=== PATIENT | female | born 1960 | race African-American/Black ===

== ENCOUNTER 2022-05-07 14:41 | Inpatient (IN) | payer MEDICAID, OTHER ==
[~2022-05-07] VITALS: Ht 160 cm; Wt 104.3 kg
[2022-05-07] MEDS ORDERED: METOCLOPRAMIDE HCL 10MG/2ML VIAL IV ONE (17:45)
[2022-05-07 18:42] LABS: BASOPHILS % 0.9 % (0.0-2.0); HEMATOCRIT. 38.4 % (36.0-48.0); HEMOGLOBIN. 13.1 g/dL (12.0-16.0); LYMPHOCYTES % 22.1 % (20.0-50.0); MEAN CORPUSCULAR HEMOGLOBIN 30.3 pg (28.0-32.0); MEAN CORPUSCULAR VOLUME 88.7 fL (81.0-99.0); MEAN PLATELET VOLUME 7.7 fl (7.4-10.4); MONOCYTES % 8.1 % (2.0-8.0); NEUTROPHILS % 67.9 % (40.0-76.0); PLATELET 320 x1000/uL (130-400); RED BLOOD CELL COUNT 4.33 mill/uL (4.2-5.4); RED CELL DISTRIBUTION WIDTH 18.3 % (11.6-14.6)
[2022-05-07] MEDS ORDERED: MECLIZINE 25MG TABLET PO NR (18:45)
[2022-05-07 18:48] LABS: CHLORIDE 100 mEq/L (98-107)
[2022-05-07] MEDS ORDERED: IOHEXOL-350 100 ML BOTTLE ONE (20:10)
[2022-05-08] MEDS ORDERED: ACETAMINOPHEN 325MG TABLET PO PRN (00:30)
[2022-05-08] MEDS ORDERED: DOCUSATE SODIUM 100MG CAPSULE PO PRN (00:30)
[2022-05-08] MEDS ORDERED: MAGNESIUM/ALUMINUM HYDROXIDE/SIMETHICONE 30ML UDC PO PRN (00:30)
[2022-05-08] MEDS ORDERED: IPRATROPIUM/ALBUTEROL 0.5-3(2.5)MG/3ML NEB HHN PRN ×2 (00:30→13:00)
[2022-05-08] MEDS ORDERED: KETOROLAC 15MG/ML VIAL IV ONE (00:30)
[2022-05-08] MEDS ORDERED: GUAIFENESIN 200MG/10ML SUGAR FREE UDC PO PRN (00:30)
[2022-05-08] MEDS ORDERED: MAGNESIUM 2 G PREMIX 50 ML IV NR (00:45)
[2022-05-08] MEDS: KCL 20MEQ/100ML PREMIX 100 ML IV SCH (08:51)
[2022-05-08 09:30] VITALS: BP 114/76
[2022-05-08 10:30] VITALS: BP 132/85
[2022-05-08] MEDS: ASPIRIN 81MG TABLET PO SCH (10:52)
[2022-05-08] MEDS: CLOPIDOGREL 75MG TABLET PO SCH (10:53)
[2022-05-08] MEDS: PANTOPRAZOLE SODIUM 40 MG/VIAL IV SCH (10:53)
[2022-05-08] MEDS: ENOXAPARIN 40MG/0.4ML SYR SUBCUT SCH (10:54)
[2022-05-08 12:00] VITALS: BP 113/73
[2022-05-08 16:00] VITALS: BP 130/89
[2022-05-08] MEDS ORDERED: KCL 20MEQ/100ML PREMIX 100 ML IV SCH (16:00)
[2022-05-08] MEDS: NICOTINE 21MG PATCH TD SCH (18:13)
[2022-05-08 18:24] LABS: CHLORIDE 102 mEq/L (98-107)
[2022-05-08 20:42] VITALS: BP 128/75
[2022-05-08] MEDS: ATORVASTATIN CALCIUM 40MG TABLET PO SCH (20:48)
[2022-05-08] MEDS: ACETAMINOPHEN 325MG TABLET PO PRN (20:48)
[2022-05-08] MEDS ORDERED: ATORVASTATIN CALCIUM 40MG TABLET PO SCH (21:00)
[2022-05-09] VITALS: BP 130/82
[2022-05-09] MEDS: LORAZEPAM 1MG TABLET PO NR ×2 (00:37→14:35)
[2022-05-09 04:24] VITALS: BP 115/75
[2022-05-09 08:00] VITALS: BP_SYST 140; BP_SYST 148; BP_SYST 157; BP_DIAS 88; BP_DIAS 90; BP_DIAS 98
[2022-05-09] MEDS: ENOXAPARIN 40MG/0.4ML SYR SUBCUT SCH (09:13)
[2022-05-09] MEDS: CLOPIDOGREL 75MG TABLET PO SCH (09:14)
[2022-05-09] MEDS: CLONIDINE 0.1MG TABLET PO PRN ×2 (09:14→21:55)
[2022-05-09] MEDS: NICOTINE 21MG PATCH TD SCH (09:14)
[2022-05-09] MEDS: ASPIRIN 81MG TABLET PO SCH (09:14)
[2022-05-09] MEDS: PANTOPRAZOLE SODIUM 40 MG/VIAL IV SCH (09:15)
[2022-05-09 10:39] LABS: BASOPHILS % 0.5 % (0.0-2.0); EOSINOPHILS % 3.5 % (0.0-5.0); HEMATOCRIT. 38.6 % (36.0-48.0); HEMOGLOBIN. 12.7 g/dL (12.0-16.0); LYMPHOCYTES % 29.4 % (20.0-50.0); MEAN CORPUSCULAR HEMOGLOBIN 29.7 pg (28.0-32.0); MEAN CORPUSCULAR VOLUME 90.5 fL (81.0-99.0); MEAN PLATELET VOLUME 7.7 fl (7.4-10.4); MONOCYTES % 11.3 % (2.0-8.0); NEUTROPHILS % 55.3 % (40.0-76.0); PLATELET 291 x1000/uL (130-400); RED BLOOD CELL COUNT 4.27 mill/uL (4.2-5.4); RED CELL DISTRIBUTION WIDTH 17.9 % (11.6-14.6)
[2022-05-09 10:57] LABS: CHLORIDE 103 mEq/L (98-107)
[2022-05-09 12:00] VITALS: BP 144/88
[2022-05-09] MEDS: ACETAMINOPHEN 325MG TABLET PO PRN (13:05)
[2022-05-09 16:00] VITALS: BP 152/85
[2022-05-09] MEDS ORDERED: DEXAMETHASONE 4MG/ML 1ML VIAL IV SCH (18:00)
[2022-05-09 20:00] VITALS: BP_SYST 157; BP_SYST 170; BP_DIAS 82; BP_DIAS 90
[2022-05-09] MEDS ORDERED: TRAZ-252 MT (21:52)
[2022-05-09] MEDS: ENOXAPARIN 30MG/0.3ML SYR SUBCUT SCH (21:54)
[2022-05-09] MEDS: ATORVASTATIN CALCIUM 40MG TABLET PO SCH (21:54)
[2022-05-10] VITALS: BP 179/90
[2022-05-10] MEDS ORDERED: ALBU05 IH (00:19)
[2022-05-10] MEDS ORDERED: [UNRECOGNIZED DRUG - OTHER] PO (01:11)
[2022-05-10] MEDS ORDERED: NIFE90TA60 PO (01:14)
[2022-05-10] MEDS ORDERED: AMLODIPINE 10MG TABLET PO NR (01:30)
[2022-05-10] MEDS ORDERED: RISPERDONE PO (01:34)
[2022-05-10] MEDS: ACETAMINOPHEN 325MG TABLET PO PRN ×2 (01:44→13:46)
[2022-05-10 04:00] VITALS: BP 158/93
[2022-05-10] MEDS ORDERED: MESA1.2T2 MT (05:19)
[2022-05-10] MEDS ORDERED: SIMV-46 PO (05:19)
[2022-05-10] MEDS ORDERED: TRAZ-252 PO (06:47)
[2022-05-10] MEDS ORDERED: VARE1TAB21 PO (06:47)
[2022-05-10] MEDS ORDERED: CLOP75TA33 PO (06:47)
[2022-05-10] MEDS ORDERED: PREG75CA PO (06:47)
[2022-05-10] MEDS ORDERED: CLON0.1T PO (06:47)
[2022-05-10] MEDS ORDERED: FAMO20TA8 PO (06:47)
[2022-05-10] MEDS ORDERED: OMEP40CA20 PO (06:47)
[2022-05-10] MEDS ORDERED: HYDR25TA PO (06:47)
[2022-05-10] MEDS ORDERED: MIRT45TA83 PO (06:47)
[2022-05-10] MEDS ORDERED: BUPR-46 PO (06:47)
[2022-05-10] MEDS ORDERED: N325 SL (06:47)
[2022-05-10] MEDS ORDERED: LURA120T PO (06:47)
[2022-05-10 08:00] VITALS: BP_SYST 128; BP_SYST 134; BP_SYST 143; BP_DIAS 79; BP_DIAS 82; BP_DIAS 86
[2022-05-10] MEDS: PANTOPRAZOLE SODIUM 40 MG/VIAL IV SCH (09:33)
[2022-05-10] MEDS: ASPIRIN 81MG TABLET PO SCH (09:33)
[2022-05-10] MEDS: CLOPIDOGREL 75MG TABLET PO SCH (09:33)
[2022-05-10] MEDS: NICOTINE 21MG PATCH TD SCH (09:34)
[2022-05-10] MEDS: ENOXAPARIN 30MG/0.3ML SYR SUBCUT SCH ×2 (09:34→21:10)
[2022-05-10 12:00] VITALS: BP_SYST 131; BP_SYST 138; BP_SYST 150; BP_DIAS 92; BP_DIAS 93; BP_DIAS 97
[2022-05-10 16:00] VITALS: BP_SYST 111; BP_SYST 140; BP_SYST 169; BP_DIAS 68; BP_DIAS 84; BP_DIAS 93
[2022-05-10 20:00] VITALS: BP_SYST 126; BP_SYST 139; BP_DIAS 100; BP_DIAS 93
[2022-05-10] MEDS: ATORVASTATIN CALCIUM 40MG TABLET PO SCH (21:10)
[2022-05-10] MEDS: FAMOTIDINE 20MG TABLET PO SCH (21:10)
[2022-05-11] VITALS: BP 126/94
[2022-05-11] MEDS: ACETAMINOPHEN 325MG TABLET PO PRN (00:43)
[2022-05-11 04:00] VITALS: BP 127/93
[2022-05-11 08:00] VITALS: BP 139/97
[2022-05-11] MEDS ORDERED: FAMOTIDINE 20MG/2ML VIAL IV SCH (09:00)
[2022-05-11] MEDS ORDERED: ATOR80TA MT (09:15)
[2022-05-11] MEDS: NICOTINE 21MG PATCH TD SCH (09:27)
[2022-05-11] MEDS: CLOPIDOGREL 75MG TABLET PO SCH (09:27)
[2022-05-11] MEDS: FAMOTIDINE 20MG TABLET PO SCH (09:27)
[2022-05-11] MEDS: ASPIRIN 81MG TABLET PO SCH (09:27)
[2022-05-11] MEDS: ENOXAPARIN 30MG/0.3ML SYR SUBCUT SCH (09:28)
== END 2022-05-11 12:50 | disposition left against medical advice (07) | DRG 45 ==
LOC: ER 14:41 → EDBEDREQ 20:51 → EDBEDREQTM 05-08 00:08 → EDBEDREQ 05-08 00:08 → MICUSO 05-08 02:00 → 6WST 05-08 09:48
PROVIDERS: ADMIT Hospitalist; ATTEND Hospitalist
DX: I63.89 Other cerebral infarction (principal); G93.6 Cerebral edema; E44.0 Moderate protein-calorie malnutrition; D64.9 Anemia, unspecified; E78.00 Pure hypercholesterolemia, unspecified; E78.5 Hyperlipidemia, unspecified; E83.42 Hypomagnesemia; J44.9 Chronic obstructive pulmonary disease, unspecified; K50.90 Crohn's disease, unspecified, without complications; R40.2412 Glasgow coma scale score 13-15, at arrival to emergency department; F17.210 Nicotine dependence, cigarettes, uncomplicated; E87.6 Hypokalemia; I10 Essential (primary) hypertension; H91.91 Unspecified hearing loss, right ear; Z53.29 Procedure and treatment not carried out because of patient's decision for other reasons; G44.209 Tension-type headache, unspecified, not intractable; Z82.3 Family history of stroke; Z86.73 Personal history of transient ischemic attack (TIA), and cerebral infarction without residual deficits; Z79.82 Long term (current) use of aspirin; Z68.41 Body mass index [BMI] 40.0-44.9, adult
CPT/HCPCS: 36415; 70496; 70498; 70551; 71045; 80048; 80053; 80061; 83036; 83735; 83880; 84484; 85025; 93005; 94640; 97162; 99285; A6261; C1893; C9113; J1100; J1650; J1885; J2765; J3475; J3480; J8597; Q9967